=== PATIENT | male | born 1980 | race Caucasian/White ===

== ENCOUNTER 2016-12-08 08:20 | Emergency (ER) | payer OTHER ==
[~2016-12-08] VITALS: Ht 170.2 cm; Wt 67.2 kg
[~2016-12-08 08:20] MED LIST: CLEOCIN150 MG PO; NOHOMEMEDS; PROZAC10 M1 PO; PROZAC20 M1 PO; Prozac PO; Remeron PO; THORAZINE25 MG PO; ULTRAM50 MG PO
[2016-12-08 09:22] LABS: BASOPHIL COUNT 0.1 K/uL (0-0.1); EOSINOPHIL (%) 5.8 % (0-5); EOSINOPHIL COUNT 0.3 K/uL (0-0.3); HEMATOCRIT 47.2 % (38.0-50.0); IMMATURE GRANULOCYTE (%) 0.4 % (0.0-0.7); INSTRUMENT ABS NEUTROPHIL CT 2.9 K/uL; LYMPHOCYTE COUNT 1.5 K/uL (1.0-2.8); MCH 30.8 PG (29.0-34.0); MCHC 34.5 G/DL (30.0-36.0); MCV 89.2 FL (86-99); MONOCYTE (%) 9.6 % (3-12); MONOCYTE COUNT 0.5 K/uL (0-0.8); NEUTROPHIL (%) 54.5 % (45-76); NEUTROPHIL COUNT 2.9 K/uL (1.8-6.4); PLATELET COUNT 226 K/uL (156-360); RBC DIS.WIDTH-CV 13.6 % (11.8-14.6); RBC DIS.WIDTH-SD 44.5 % (39-53); RED BLOOD COUNT 5.29 M/uL (4.00-5.50); WHITE BLOOD COUNT 5.4 K/uL (4.1-10.2)
[2016-12-08 09:34] LABS: ADD MIUA? NO; BILIRUBIN NEGATIVE; BLOOD NEGATIVE; COLOR YELLOW ((YELLOW)); GLUCOSE (STRIP) NEGATIVE; KETONES NEGATIVE; LEUKOCYTES NEGATIVE; NITRITE NEGATIVE; PROTEIN (STRIP) NEGATIVE; SPECIFIC GRAVITY 1.028 (1.000-1.030); UROBILINOGEN 0.2 MG/DL (0.2-1.0)
[2016-12-08 09:36] LABS: CHLORIDE 106 mEq/L (99-109); POTASSIUM 3.8 mEq/L (3.7-5.4); SODIUM 140 mEq/L (136-147)
[2016-12-08 09:37] LABS: GLUCOSE 93 mg/dL (70-99)
[2016-12-08 09:39] LABS: ANION GAP 8 MEQ/L (2-14)
[2016-12-08 09:41] LABS: GFR ESTIMATE (CALCULATED) > 59 mL/min/; SERUM ETHYL ALCOHOL < 10 mg/dL
[2016-12-08 09:42] LABS: UREA NITROGEN (BUN) 9 mg/dL (9-23)
[2016-12-08 09:47] LABS: AMPHETAMINE NEGATIVE (500 ng/mL); BARBITURATES NEGATIVE (200 ng/mL); BENZODIAZEPINES NEGATIVE (150 ng/mL); COCAINE NEGATIVE (150 ng/mL); INTERNAL CONTROLS VALID? YES; METHADONE NEGATIVE (200 ng/mL); METHAMPHETAMINE NEGATIVE (500 ng/mL); OPIATES (MORPHINE) NEGATIVE (100 ng/mL); OXYCODONE NEGATIVE (100 ng/mL); PHENCYCLIDINE NEGATIVE (25 ng/mL); PROPOXYPHENE NEGATIVE (300 ng/mL); THC CANNABINOIDS PRESUMPTIVE POSITIVE (50 ng/mL); TRICYCLIC ANTIDEPRESSANTS NEGATIVE (300 ng/mL)
[2016-12-08 09:48] LABS: ADD MEDTOX COMMENT Y
[2016-12-08] MEDS ORDERED: ATARAX,VISTARIL50 MG PO (11:43)
[2016-12-08 11:46] VITALS: BP 146/89
== END 2016-12-08 11:47 | disposition home or self-care (01) ==
LOC: EME 08:20
PROVIDERS: Emergency Medicine
DX: F32.9 Major depressive disorder, single episode, unspecified (principal); F41.9 Anxiety disorder, unspecified; F17.200 Nicotine dependence, unspecified, uncomplicated; Z88.0 Allergy status to penicillin
CPT/HCPCS: 80048; 81003; 84999; 85025; 90839; 99281; 99285; G0480

== ENCOUNTER 2017-06-02 05:30 | Emergency (ER) | payer OTHER ==
[~2017-06-02] VITALS: Ht 172.7 cm; Wt 72.5 kg
[~2017-06-02 05:30] MED LIST changes: +ATARAX,VISTARIL50 MG PO; +HYDROXYZINE PAM50 MG PO
[2017-06-02] MEDS ORDERED: XANAX0.25 MG PO (07:19)
[2017-06-02 07:52] VITALS: BP 149/92
== END 2017-06-02 07:54 | disposition home or self-care (01) ==
LOC: EME 05:30
DX: F41.9 Anxiety disorder, unspecified (principal); R25.1 Tremor, unspecified; J45.909 Unspecified asthma, uncomplicated; F32.9 Major depressive disorder, single episode, unspecified; F17.200 Nicotine dependence, unspecified, uncomplicated; Z88.0 Allergy status to penicillin
CPT/HCPCS: 99281; 99283

== ENCOUNTER 2017-09-21 07:56 | Emergency (ER) | payer SELFPAY ==
[~2017-09-21] VITALS: Ht 172.7 cm; Wt 71.4 kg
[~2017-09-21 07:56] MED LIST changes: +XANAX0.25 MG PO
[2017-09-21 08:10] VITALS: BP 132/76
== END 2017-09-21 09:37 | disposition left against medical advice (07) ==
LOC: EME 07:56
DX: R25.1 Tremor, unspecified (principal); G89.29 Other chronic pain; M54.2 Cervicalgia; M54.9 Dorsalgia, unspecified; F32.9 Major depressive disorder, single episode, unspecified; F41.9 Anxiety disorder, unspecified; J45.909 Unspecified asthma, uncomplicated; Z88.0 Allergy status to penicillin; F17.200 Nicotine dependence, unspecified, uncomplicated
CPT/HCPCS: 99281; 99284

== ENCOUNTER 2017-10-03 12:27 | Inpatient (IN) | payer OTHER ==
[~2017-10-03] VITALS: Ht 172.7 cm; Wt 70.0 kg
[2017-10-03 13:02] LABS: APPEARANCE CLEAR ((CLEAR)); BILIRUBIN NEGATIVE; BLOOD NEGATIVE; COLOR YELLOW ((YELLOW)); GLUCOSE (STRIP) NEGATIVE; KETONES NEGATIVE; LEUKOCYTES NEGATIVE; NITRITE NEGATIVE; PROTEIN (STRIP) NEGATIVE; SPECIFIC GRAVITY 1.017 (1.000-1.030)
[2017-10-03 13:13] LABS: AMPHETAMINE NEGATIVE (500 ng/mL); BARBITURATES NEGATIVE (200 ng/mL); BENZODIAZEPINES NEGATIVE (150 ng/mL); BUPRENORPHINE NEGATIVE (10 ng/mL); COCAINE NEGATIVE (150 ng/mL); METHADONE NEGATIVE (200 ng/mL); METHAMPHETAMINE NEGATIVE (500 ng/mL); OPIATES (MORPHINE) NEGATIVE (100 ng/mL); OXYCODONE NEGATIVE (100 ng/mL); PHENCYCLIDINE NEGATIVE (25 ng/mL); PROPOXYPHENE NEGATIVE (300 ng/mL); THC CANNABINOIDS PRESUMPTIVE POSITIVE (50 ng/mL); TRICYCLIC ANTIDEPRESSANTS NEGATIVE (300 ng/mL)
[2017-10-03 13:44] LABS: BASOPHIL (%) 1.1 % (0-1); BASOPHIL COUNT 0.1 K/uL (0-0.1); EOSINOPHIL (%) 9.1 % (0-5); EOSINOPHIL COUNT 0.6 K/uL (0-0.3); HEMATOCRIT 45.6 % (38.0-50.0); IMMATURE GRANULOCYTE (%) 0.3 % (0.0-0.7); LYMPHOCYTE (%) 28.9 % (15-42); MCH 31.8 PG (29.0-34.0); MCHC 35.1 G/DL (30.0-36.0); MCV 90.7 FL (86-99); MONOCYTE (%) 8.1 % (3-12); MONOCYTE COUNT 0.6 K/uL (0-0.8); NEUTROPHIL (%) 52.5 % (45-76); NEUTROPHIL COUNT 3.7 K/uL (1.8-6.4); PLATELET COUNT 210 K/uL (156-360); RBC DIS.WIDTH-CV 13.3 % (11.8-14.6); RBC DIS.WIDTH-SD 44.5 % (39-53); RED BLOOD COUNT 5.03 M/uL (4.00-5.50); WHITE BLOOD COUNT 7.1 K/uL (4.1-10.2)
[2017-10-03 13:51] LABS: CHLORIDE 106 mEq/L (99-109); POTASSIUM 3.8 mEq/L (3.7-5.4); SODIUM 139 mEq/L (136-147)
[2017-10-03 13:53] LABS: GLUCOSE 97 mg/dL (70-99)
[2017-10-03 13:56] LABS: SERUM ETHYL ALCOHOL < 10 mg/dL
[2017-10-03 13:57] LABS: CREATININE 0.9 mg/dL (0.6-1.3); GFR ESTIMATE (CALCULATED) > 59 mL/min/ (58.99-99999)
[2017-10-03 13:58] LABS: UREA NITROGEN (BUN) 5 mg/dL (9-23)
[2017-10-03 16:03] VITALS: BP 130/74
[2017-10-03 16:10] VITALS: BP 130/74
[2017-10-04 07:42] VITALS: BP 111/58
[2017-10-04 16:29] VITALS: BP 129/65
[2017-10-05 08:01] VITALS: BP 103/51
[2017-10-05] MEDS ORDERED: INDERAL20 MG PO (09:12)
[2017-10-05] MEDS ORDERED: HYDROXYZINE PAM50 MG PO (09:13)
== END 2017-10-05 11:48 | disposition home or self-care (01) | DRG 882 ==
LOC: EME 12:27 → 1WEST 13:42 → EDOF 13:42 → ENRESERV 15:20 → ENRESERVTM 15:30 → ENRESERV 15:30 → ENRESERVDT 15:30 → 1WEST 15:51
PROVIDERS: Emergency Medicine
DX: F43.23 Adjustment disorder with mixed anxiety and depressed mood (principal); G25.0 Essential tremor; R45.851 Suicidal ideations; F12.90 Cannabis use, unspecified, uncomplicated; F17.200 Nicotine dependence, unspecified, uncomplicated; Z59.0 Homelessness
CPT/HCPCS: 80048; 81003; 84999; 85025; 90839; 99281; 99285; G0480; Q0177

== ENCOUNTER 2017-10-31 10:38 | Emergency (ER) | payer OTHER ==
[~2017-10-31] VITALS: Ht 172.7 cm; Wt 69.6 kg
[~2017-10-31 10:38] MED LIST changes: +INDERAL20 MG PO
[2017-10-31 11:32] LABS: HEMATOCRIT 46.2 % (38.0-50.0); HEMOGLOBIN 16.3 G/DL (12.5-16.6); MCH 31.8 PG (29.0-34.0); MCHC 35.3 G/DL (30.0-36.0); MCV 90.2 FL (86-99); PLATELET COUNT 200 K/uL (156-360); RBC DIS.WIDTH-CV 13.3 % (11.8-14.6); RED BLOOD COUNT 5.12 M/uL (4.00-5.50); WHITE BLOOD COUNT 9.9 K/uL (4.1-10.2)
[2017-10-31 11:44] LABS: CHLORIDE 108 mEq/L (99-109); POTASSIUM 4.1 mEq/L (3.7-5.4); SODIUM 142 mEq/L (136-147)
[2017-10-31 11:45] LABS: GLUCOSE 88 mg/dL (70-99)
[2017-10-31] MEDS ORDERED: FLEXERIL10 MG PO (11:46)
[2017-10-31 11:49] LABS: GFR ESTIMATE (CALCULATED) > 59 mL/min/ (58.99-99999)
[2017-10-31 11:50] LABS: UREA NITROGEN (BUN) 5 mg/dL (9-23)
[2017-10-31 11:53] LABS: TROP-I INTERPRETATION NEGATIVE; TROPONIN-I < 0.01 ng/mL (0.0-0.30)
[2017-10-31 12:11] VITALS: BP 125/77
== END 2017-10-31 12:12 | disposition home or self-care (01) ==
LOC: EME 10:38
PROVIDERS: Emergency Medicine
DX: R00.8 Other abnormalities of heart beat (principal); T44.7X5A Adverse effect of beta-adrenoreceptor antagonists, initial encounter; R25.1 Tremor, unspecified; J45.909 Unspecified asthma, uncomplicated; F41.9 Anxiety disorder, unspecified; G43.909 Migraine, unspecified, not intractable, without status migrainosus; F17.200 Nicotine dependence, unspecified, uncomplicated; Z88.0 Allergy status to penicillin
CPT/HCPCS: 71046; 80048; 84484; 85027; 93005; 99281; 99283